=== PATIENT | male | born 1940 ===

== ENCOUNTER 2018-10-18 10:36 | Inpatient (IN) | payer OTHER ==
[~2018-10-18] VITALS: Ht 160 cm; Wt 72.6 kg
[2018-11-02] MEDS ORDERED: LIPITOR20 MG PO (14:29)
[2018-11-02] MEDS ORDERED: AVADART PO (14:30)
[2018-11-02] MEDS ORDERED: PLAVIX75 MG PO (14:30)
[2018-11-02] MEDS ORDERED: AVODART0.5 MG PO (14:37)
== END 2018-11-13 14:17 | disposition home or self-care (01) | DRG 331 ==
LOC: O/R 11-10 05:35 → SURG 11-10 05:35 → SURH 11-10 11:30 → SURG 11-13 14:17
PROVIDERS: ADMIT Colon & Rectal Surgery
PROC: 07TB4ZZ Resection of Mesenteric Lymphatic, Percutaneous Endoscopic Approach (ICD-10-PCS; 2018-11-10)
PROC: 0DTU4ZZ Resection of Omentum, Percutaneous Endoscopic Approach (ICD-10-PCS; 2018-11-10)
PROC: 0DTU4ZZ Resection of Omentum, Percutaneous Endoscopic Approach (ICD-10-PCS; 2018-11-10)
PROC: 0DTU4ZZ Resection of Omentum, Percutaneous Endoscopic Approach (ICD-10-PCS; 2018-11-10)
PROC: 0DJD8ZZ Inspection of Lower Intestinal Tract, Via Natural or Artificial Opening Endoscopic (ICD-10-PCS; 2018-11-10)
PROC: 0DTN4ZZ Resection of Sigmoid Colon, Percutaneous Endoscopic Approach (ICD-10-PCS; principal; 2018-11-10 11:30)
DX: C18.6 Malignant neoplasm of descending colon (principal); N40.0 Benign prostatic hyperplasia without lower urinary tract symptoms; E78.49 Other hyperlipidemia

== ENCOUNTER 2020-03-09 09:03 | Day surgery (SDC) | payer OTHER ==
[~2020-03-09 09:03] MED LIST: AVADART PO; AVODART0.5 MG PO; LIPITOR20 MG PO; PLAVIX75 MG PO
== END 2020-03-09 15:25 | disposition home or self-care (01) ==
LOC: AMB-ENDOS 09:03 → ADM 12:30 → AMB-ENDOS 12:30
PROVIDERS: ATTEND Colon & Rectal Surgery
DX: K62.89 Other specified diseases of anus and rectum (principal); K64.1 Second degree hemorrhoids; Z20.828 Contact with and (suspected) exposure to other viral communicable diseases

== ENCOUNTER 2021-05-10 06:25 | Day surgery (SDC) | payer OTHER | END 2021-05-10 11:35 | disposition home or self-care (01) | LOC: AMB-ENDOS 06:25 | PROVIDERS: ATTEND Colon & Rectal Surgery | DX: K62.89 Other specified diseases of anus and rectum (principal); K64.0 First degree hemorrhoids; Z20.822 Contact with and (suspected) exposure to COVID-19 ==